=== PATIENT | female | born 1995 | race Two or more races ===

== ENCOUNTER 2019-11-17 15:10 | Inpatient (IN) | payer OTHER ==
[~2019-11-17] VITALS: Ht 167.6 cm; Wt 2.7 kg
[2019-11-17] MEDS ORDERED: PRENATAL TABLE1 EAC1 PO (18:04)
== END 2019-11-21 12:57 | disposition home or self-care (01) | DRG 788 ==
LOC: OBS/DEL 15:10 → LDR 17:38 → OB/GYN 11-18 20:56
PROVIDERS: ADMIT Obstetrics & Gynecology; ATTEND Obstetrics & Gynecology
PROC: 4A1HXCZ Monitoring of Products of Conception, Cardiac Rate, External Approach (ICD-10-PCS; 2019-11-17)
PROC: 10D00Z1 Extraction of Products of Conception, Low, Open Approach (ICD-10-PCS; principal; 2019-11-18 16:00)
DX: O41.03X0 Oligohydramnios, third trimester, not applicable or unspecified (principal); Z3A.38 38 weeks gestation of pregnancy; Z37.0 Single live birth

== ENCOUNTER 2021-08-24 20:38 | Inpatient (IN) | payer OTHER ==
[~2021-08-24] VITALS: Ht 172.7 cm; Wt 95.3 kg
[~2021-08-24 20:38] MED LIST: PRENATAL TABLE1 EAC1 PO
== END 2021-09-02 11:09 | disposition home or self-care (01) | DRG 832 ==
LOC: OBS/DEL 20:38 → LDR 08-25 21:08 → OB/GYN 08-30 13:16
PROVIDERS: ADMIT Obstetrics & Gynecology; ATTEND Obstetrics & Gynecology
PROC: 4A1HXCZ Monitoring of Products of Conception, Cardiac Rate, External Approach (ICD-10-PCS; principal; 2021-08-28)
PROC: BY4FZZZ Ultrasonography of Third Trimester, Single Fetus (ICD-10-PCS; 2021-08-28)
PROC: BU4CZZZ Ultrasonography of Uterus and Ovaries (ICD-10-PCS; 2021-08-28)
DX: O23.33 Infections of other parts of urinary tract in pregnancy, third trimester (principal); O98.913 Unspecified maternal infectious and parasitic disease complicating pregnancy, third trimester; O26.843 Uterine size-date discrepancy, third trimester; O36.8130 Decreased fetal movements, third trimester, not applicable or unspecified; O36.8330 Maternal care for abnormalities of the fetal heart rate or rhythm, third trimester, not applicable or unspecified; Z3A.28 28 weeks gestation of pregnancy; Z20.822 Contact with and (suspected) exposure to COVID-19; B96.29 Other Escherichia coli [E. coli] as the cause of diseases classified elsewhere

== ENCOUNTER 2021-11-21 10:00 | Inpatient (IN) | payer OTHER ==
[~2021-11-21] VITALS: Ht 167.6 cm; Wt 3.2 kg
== END 2021-11-25 14:04 | disposition home or self-care (01) | DRG 785 ==
LOC: O/R 11-22 09:06 → OB/GYN 11-22 10:00
PROVIDERS: ADMIT Obstetrics & Gynecology; ATTEND Obstetrics & Gynecology
PROC: 4A1HXCZ Monitoring of Products of Conception, Cardiac Rate, External Approach (ICD-10-PCS; 2021-11-22)
PROC: 0UB70ZZ Excision of Bilateral Fallopian Tubes, Open Approach (ICD-10-PCS; 2021-11-22)
PROC: 10D00Z1 Extraction of Products of Conception, Low, Open Approach (ICD-10-PCS; principal; 2021-11-22 11:45)
DX: O34.211 Maternal care for low transverse scar from previous cesarean delivery (principal); Z3A.39 39 weeks gestation of pregnancy; Z37.0 Single live birth; Z20.822 Contact with and (suspected) exposure to COVID-19; Z30.2 Encounter for sterilization